=== PATIENT | female | born 1970 | race Caucasian/White ===

== ENCOUNTER 2016-10-20 02:31 | Inpatient (IN) | payer BC ==
[~2016-10-20] VITALS: Ht 162.6 cm; Wt 80.7 kg
[~2016-10-20 02:31] MED LIST: P-EP1TAB80 PO
[2016-10-20 02:50] VITALS: BP_SYST 137
[2016-10-20] MEDS ORDERED: NACL 0.9% 1,000 ML IV ONE ×2 (03:47→05:15)
[2016-10-20 03:59] LABS: BILIRUBIN,URINE NEGATIVE (NEGATIVE); CLARITY/URINE CLEAR (CLEAR); COLOR,URINE YELLOW (YELLOW); GLUCOSE,URINE NEGATIVE (NEGATIVE); KETONES,URINE NEGATIVE (NEGATIVE); LEUKOCYTE ESTERASE ,URINE NEGATIVE (NEGATIVE); NITRITE, URINE NEGATIVE (NEGATIVE); PROTEIN URINE NEGATIVE (NEGATIVE)
[2016-10-20] MEDS ORDERED: KETOROLAC TROMETHAMINE 30 MG VIAL IVP ONE (04:00)
[2016-10-20 04:04] LABS: BLOOD, URINE TRACE (NEGATIVE)
[2016-10-20 04:05] LABS: BACTERIA,URINE RARE /HPF (None Seen); MUCUS,URINE None Seen /LPF (None Seen); RBC,URINE 0-3 /HPF (0-3); WBC,URINE 0-3 /HPF (0-3)
[2016-10-20] MEDS ORDERED: PANTOPRAZOLE SODIUM 40 MG/VIAL (PROTONIX) IVP ONE (04:15)
[2016-10-20 04:20] LABS: CALCIUM 8.9 mg/dL (8.4-11.0); CREATININE 0.86 mg/dL (0.55-1.30); POTASSIUM 3.9 mmol/L (3.5-5.1)
[2016-10-20 04:23] LABS: HEMATOCRIT 37.5 % (36-48); HEMOGLOBIN 12.6 g/dL (12.0-16.0); MEAN CORPUSCULAR HEMOGLOBIN 29 pg (27-31); MEAN CORPUSCULAR HGB CONC 34 % (32-36); MEAN CORPUSCULAR VOLUME 86 fL (79.0-98.0); NEUTROPHILS % (AUTO) 75.7 % (40.0-70.0); PLATELET COUNT (AUTO) 289 K/uL (130-430); RED BLOOD CELL COUNT(AUTO) 4.38 MIL/uL (4.2-6.2); RED CELL DISTRIBUTION WIDTH 14.3 % (9.0-15.0); WHITE BLOOD COUNT (AUTO) 7.7 K/uL (4.8-10.8)
[2016-10-20 04:24] LABS: BASOPHILS % (AUTO) 0.3 % (0.0-2.0); EOSINOPHILS # (AUTO) 0.1 K/uL (0.0-0.4); EOSINOPHILS % (AUTO) 0.9 % (0.0-4.0); INR 0.9 (0.8-1.2); LYMPHOCYTES # (AUTO) 1.3 K/uL (1.0-5.5); LYMPHOCYTES % (AUTO) 16.7 % (20.5-51.5); MONOCYTES # (AUTO) 0.5 K/uL (0.0-1.0); MONOCYTES % (AUTO) 6.4 % (1.7-9.3); NEUTROPHILS # (AUTO) 5.8 K/uL (1.8-7.7); PROTHROMBIN TIME 10.2 SECS (9.5-12.5)
[2016-10-20 04:25] LABS: ALBUMIN 3.6 g/dL (3.4-4.8); TOTAL BILIRUBIN 0.7 mg/dL (0.0-1.0); TOTAL PROTEIN, SERUM 7.3 g/dL (6.4-8.3)
[2016-10-20] MEDS ORDERED: NACL 0.9% 1,000 ML IV SCH (05:14)
[2016-10-20] MEDS ORDERED: MORPHINE 2 MG/ML INJ. SYRINGE IVP PRN ×2 (05:15)
[2016-10-20] MEDS ORDERED: HYDROcodone/ACETAMIN 10-325 MG TAB PO PRN (05:15)
[2016-10-20] MEDS ORDERED: GABA-580 PO (05:15)
[2016-10-20] MEDS ORDERED: ONDANSETRON HCL 4 MG/2 ML VIAL IVP PRN (05:15)
[2016-10-20] MEDS ORDERED: ACETAMINOPHEN 325 MG TABLET PO PRN (05:15)
[2016-10-20] MEDS ORDERED: ZOLP10TA2 PO (05:15)
[2016-10-20] MEDS ORDERED: CYCL-10 PO (05:15)
[2016-10-20] MEDS ORDERED: TRAM50TA92 PO (05:15)
[2016-10-20] MEDS ORDERED: DULO20CA PO (05:15)
[2016-10-20 05:43] VITALS: BP_SYST 111
[2016-10-20 06:18] LABS: CHOLESTEROL 194 mg/dL (<200); HDL CHOLESTEROL 34 mg/dL (>55); LDL CHOLESTEROL 120 mg/dL (<100); TRIGLYCERIDES 155 mg/dL (30-150)
[2016-10-20] MEDS: ENOXAPARIN SODIUM 30 MG/0.3 ML SYRINGE SUBCUT SCH (08:20)
[2016-10-20 08:28] VITALS: BP_SYST 122
[2016-10-20] MEDS ORDERED: DIATR MEGLU/DIATRIZ SOD 30 ML SOLUTION PO ONE (08:59)
[2016-10-20] MEDS ORDERED: DULoxetine HCL 20 MG CAPSULE.DR PO SCH (09:00)
[2016-10-20] MEDS ORDERED: ZOLPIDEM TARTRATE 5 MG TABLET PO SCH (09:00)
[2016-10-20] MEDS: HYDROmorphone 1 MG INJ. 1 MG/ML AMPUL IVP PRN ×3 (10:58→20:10)
[2016-10-20] MEDS: KCL 10 mEq in D5/0.45NS 1000mL 1,000 ML IV SCH ×2 (11:48→20:11)
[2016-10-20 12:31] VITALS: BP_SYST 127
[2016-10-20 16:00] VITALS: BP_SYST 125
[2016-10-20] MEDS: ZOLPIDEM TARTRATE 5 MG TABLET PO PRN (22:49)
[2016-10-21 00:59] VITALS: BP_SYST 108
[2016-10-21 04:16] VITALS: BP_SYST 121
[2016-10-21] MEDS: KCL 10 mEq in D5/0.45NS 1000mL 1,000 ML IV SCH ×2 (05:56→17:42)
[2016-10-21] MEDS: ACETAMINOPHEN 325 MG TABLET PO PRN ×2 (06:05→20:12)
[2016-10-21 07:30] LABS: BASOPHILS % (AUTO) 0.4 % (0.0-2.0); EOSINOPHILS # (AUTO) 0.2 K/uL (0.0-0.4); EOSINOPHILS % (AUTO) 2.5 % (0.0-4.0); HEMATOCRIT 34.2 % (36-48); HEMOGLOBIN 11.4 g/dL (12.0-16.0); LYMPHOCYTES # (AUTO) 1.9 K/uL (1.0-5.5); LYMPHOCYTES % (AUTO) 31.1 % (20.5-51.5); MEAN CORPUSCULAR HEMOGLOBIN 29 pg (27-31); MEAN CORPUSCULAR HGB CONC 34 % (32-36); MEAN CORPUSCULAR VOLUME 86 fL (79.0-98.0); MONOCYTES # (AUTO) 0.4 K/uL (0.0-1.0); MONOCYTES % (AUTO) 5.7 % (1.7-9.3); NEUTROPHILS # (AUTO) 3.7 K/uL (1.8-7.7); NEUTROPHILS % (AUTO) 60.3 % (40.0-70.0); PLATELET COUNT (AUTO) 255 K/uL (130-430); RED BLOOD CELL COUNT(AUTO) 3.97 MIL/uL (4.2-6.2); WHITE BLOOD COUNT (AUTO) 6.2 K/uL (4.8-10.8)
[2016-10-21 07:34] LABS: CALCIUM 8.7 mg/dL (8.4-11.0); CREATININE 0.76 mg/dL (0.55-1.30); POTASSIUM 3.8 mmol/L (3.5-5.1)
[2016-10-21 07:38] LABS: ALBUMIN 3.3 g/dL (3.4-4.8); PHOSPHORUS 4.5 mg/dL (2.7-4.5); TOTAL BILIRUBIN 0.4 mg/dL (0.0-1.0); TOTAL PROTEIN, SERUM 6.8 g/dL (6.4-8.3)
[2016-10-21] MEDS: ENOXAPARIN SODIUM 30 MG/0.3 ML SYRINGE SUBCUT SCH (09:00)
[2016-10-21] MEDS: HYDROmorphone 1 MG INJ. 1 MG/ML AMPUL IVP PRN (11:25)
[2016-10-21 12:47] VITALS: BP_SYST 127
[2016-10-21 16:38] VITALS: BP_SYST 132
[2016-10-21 19:00] VITALS: BP_SYST 130
[2016-10-21 20:00] VITALS: BP_SYST 130
[2016-10-21] MEDS: ZOLPIDEM TARTRATE 5 MG TABLET PO PRN (20:56)
[2016-10-22] MEDS: KCL 10 mEq in D5/0.45NS 1000mL 1,000 ML IV SCH ×2 (01:00→03:01)
[2016-10-22] MEDS: HYDROmorphone 1 MG INJ. 1 MG/ML AMPUL IVP PRN (02:57)
[2016-10-22 06:51] LABS: BASOPHILS % (AUTO) 0.3 % (0.0-2.0); EOSINOPHILS # (AUTO) 0.1 K/uL (0.0-0.4); EOSINOPHILS % (AUTO) 1.4 % (0.0-4.0); HEMATOCRIT 34.7 % (36-48); HEMOGLOBIN 11.4 g/dL (12.0-16.0); LYMPHOCYTES # (AUTO) 2.1 K/uL (1.0-5.5); LYMPHOCYTES % (AUTO) 29.6 % (20.5-51.5); MEAN CORPUSCULAR HEMOGLOBIN 28 pg (27-31); MEAN CORPUSCULAR HGB CONC 33 % (32-36); MEAN CORPUSCULAR VOLUME 86 fL (79.0-98.0); MONOCYTES # (AUTO) 0.4 K/uL (0.0-1.0); MONOCYTES % (AUTO) 5.6 % (1.7-9.3); NEUTROPHILS # (AUTO) 4.4 K/uL (1.8-7.7); NEUTROPHILS % (AUTO) 63.1 % (40.0-70.0); PLATELET COUNT (AUTO) 283 K/uL (130-430); RED BLOOD CELL COUNT(AUTO) 4.03 MIL/uL (4.2-6.2); RED CELL DISTRIBUTION WIDTH 14.4 % (9.0-15.0)
[2016-10-22 07:02] LABS: ALBUMIN 3.3 g/dL (3.4-4.8); CALCIUM 8.5 mg/dL (8.4-11.0); CREATININE 0.72 mg/dL (0.55-1.30); POTASSIUM 3.7 mmol/L (3.5-5.1); TOTAL BILIRUBIN 0.4 mg/dL (0.0-1.0); TOTAL PROTEIN, SERUM 7.2 g/dL (6.4-8.3)
[2016-10-22 08:07] VITALS: BP_SYST 120
[2016-10-22] MEDS: ENOXAPARIN SODIUM 30 MG/0.3 ML SYRINGE SUBCUT SCH (09:45)
[2016-10-23 18:26] LABS: ANTI NUCLEAR AB WITH REFLEX Negative (Negative)
[2016-10-24 21:16] LABS: IMMUNOGLOBULIN G SUBCLASS 4 72 mg/dL (2-96)
== END 2016-10-22 14:00 | disposition home or self-care (01) | DRG 440 ==
LOC: SED 02:31 → SMU 05:14
PROVIDERS: ADMIT Internal Medicine; ATTEND Internal Medicine
DX: K85.90 Acute pancreatitis without necrosis or infection, unspecified (principal); M79.7 Fibromyalgia; D25.9 Leiomyoma of uterus, unspecified; G47.00 Insomnia, unspecified; R74.0 Nonspecific elevation of levels of transaminase and lactic acid dehydrogenase [LDH]; Z98.51 Tubal ligation status; Z90.49 Acquired absence of other specified parts of digestive tract; Z80.49 Family history of malignant neoplasm of other genital organs; Z80.3 Family history of malignant neoplasm of breast; Z79.899 Other long term (current) drug therapy
CPT/HCPCS: 36415; 74181; 76700-TC; 76830-TC; 76857; 80053; 80061; 81000-TC; 81025; 82787; 83690-TC; 83735-TC; 84100-TC; 85025; 85610-TC; 85730-TC; 86038; 96361; 96374; 96375; 99285; C9113; J1170; J1650; J1885; J7030; Q9964

== ENCOUNTER 2016-11-25 06:00 | Day surgery (SDC) | payer BC ==
[~2016-11-25] VITALS: Ht 165.1 cm; Wt 79.8 kg
[~2016-11-25 06:00] MED LIST changes: +CYCL-10 PO; +DULO20CA PO; +GABA-580 PO; +TRAM50TA92 PO; +ZOLP10TA2 PO
[2016-11-25] MEDS ORDERED: KETAMINE HCL 500 MG/10 ML VIAL IVP ONE (07:05)
[2016-11-25] MEDS ORDERED: PROPOFOL 200MG/ 20ML VIAL (DIPRIVAN) IV ONE (07:05)
[2016-11-25] MEDS ORDERED: LR 1,000 ML IV.SOLN IV ONE (07:05)
[2016-11-25] MEDS ORDERED: MIDAZOLAM HCL 5 MG/5 ML VIAL IVP ONE (07:05)
[2016-11-25] MEDS ORDERED: fentaNYL CITRATE 250 MCG/5 ML AMP IV ONE (07:05)
[2016-11-25] MEDS ORDERED: SEVOFLURANE 15 MIN GAS INH ONE (07:05)
[2016-11-25] MEDS ORDERED: KETOROLAC TROMETHAMINE 30 MG VIAL IVP ONE (07:05)
[2016-11-25] MEDS ORDERED: DEXAMETHASONE SOD PHOSPHATE 4 MG/ML VIAL IVP ONE (07:05)
[2016-11-25] MEDS ORDERED: BUPIVACAINE /EPINEPHRINE/PF 0.5% 30 ML VIAL INJ ONE (07:05)
[2016-11-25] MEDS ORDERED: NS 1000 ML BAG IV ONE (07:05)
[2016-11-25] MEDS ORDERED: ONDANSETRON HCL 4 MG/2 ML VIAL IVP ONE (07:05)
[2016-11-25] MEDS ORDERED: ROCURONIUM BROMIDE 10 MG/ML (ZEMURON) IV ONE (07:05)
[2016-11-25] MEDS ORDERED: KETAMINE HCL 500 MG/10 ML VIAL ONE (07:32)
[2016-11-25] MEDS ORDERED: HYDROmorphone 2 MG/ML VIAL IVP PRN ×2 (08:30)
[2016-11-25] MEDS ORDERED: MEPERIDINE HCL/PF 25 MG/ML DISP.SYRIN IVP PRN (08:30)
[2016-11-25] MEDS ORDERED: LR 1,000 ML IV SCH (08:30)
[2016-11-25] MEDS ORDERED: HYDROmorphone 1 MG INJ. 1 MG/ML AMPUL IVP PRN (08:30)
[2016-11-25] MEDS ORDERED: HYDROmorphone 2 MG TAB PO PRN (09:00)
[2016-11-25] MEDS ORDERED: ONDANSETRON HCL 4 MG/2 ML VIAL IVP PRN (09:00)
[2016-11-25] MEDS ORDERED: PROMETHAZINE HCL 25 MG/ML AMP IM PRN (09:00)
[2016-11-25] MEDS ORDERED: OXYCODONE/ACETAMINOPHEN 5-325 TABLET PO PRN (09:00)
[2016-11-25] MEDS ORDERED: HYDROmorphone 2 MG/ML VIAL ONE (09:31)
[2016-11-25] MEDS ORDERED: OXYCODONE/ACETAMINOPHEN 5-325 TABLET ONE (10:31)
[2016-11-25 10:48] VITALS: BP_SYST 113
== END 2016-11-25 12:00 | disposition home or self-care (01) ==
LOC: SMU 06:00 → SDS 06:00
PROVIDERS: ATTEND Obstetrics & Gynecology
DX: N80.1 Endometriosis of ovary (principal); K66.0 Peritoneal adhesions (postprocedural) (postinfection); M79.7 Fibromyalgia; Z90.49 Acquired absence of other specified parts of digestive tract; Z98.890 Other specified postprocedural states; Z79.899 Other long term (current) drug therapy; Z80.3 Family history of malignant neoplasm of breast; Z80.8 Family history of malignant neoplasm of other organs or systems; K85.90 Acute pancreatitis without necrosis or infection, unspecified; E66.01 Morbid (severe) obesity due to excess calories; F41.9 Anxiety disorder, unspecified; F32.9 Major depressive disorder, single episode, unspecified
CPT/HCPCS: 36415; 58661; 86886; 86900; 86901; 88305; J1100; J1170; J1885; J2250; J2405; J2704; J3010; J3490; J7030; J7120; C1727

== ENCOUNTER 2017-05-31 07:24 | Day surgery (SDC) | payer BC ==
[~2017-05-31] VITALS: Ht 165.1 cm; Wt 82.6 kg
[~2017-05-31 07:24] MED LIST changes: +CEFAZOLIN SOD 1 GM/ ISO 50 ML PREMIX IV ONE
[2017-05-31 08:41] LABS: HCG,QUAL RESULT NEGATIVE (NEGATIVE)
[2017-05-31] MEDS ORDERED: POLYMYXIN 500,000/BACIT.10,000 UNITS in NS IRR 1 L IR ONE (09:14)
[2017-05-31] MEDS ORDERED: GLYCOPYRROLATE 0.2 MG/ML VIAL IJ ONE (09:20)
[2017-05-31] MEDS ORDERED: BUPIVACAINE /PF 0.25% 30 ML VIAL INJ ONE (09:20)
[2017-05-31] MEDS ORDERED: NEOSTIGMINE METHYLSULFATE 1 MG/ML, 10 ML VIAL IVP ONE (09:20)
[2017-05-31] MEDS ORDERED: PROPOFOL 200MG/ 20ML VIAL (DIPRIVAN) IV ONE (09:20)
[2017-05-31] MEDS ORDERED: MIDAZOLAM HCL 5 MG/5 ML VIAL IVP ONE (09:20)
[2017-05-31] MEDS ORDERED: ONDANSETRON HCL 4 MG/2 ML VIAL IVP ONE (09:20)
[2017-05-31] MEDS ORDERED: fentaNYL CITRATE/PF 100 MCG/2 ML AMP IVP ONE (09:20)
[2017-05-31] MEDS ORDERED: SEVOFLURANE 15 MIN GAS INH ONE (09:20)
[2017-05-31] MEDS ORDERED: ROCURONIUM BROMIDE 10 MG/ML (ZEMURON) IV ONE (09:20)
[2017-05-31] MEDS ORDERED: LR 1,000 ML IV SCH (10:05)
[2017-05-31] MEDS ORDERED: HYDROmorphone 1 MG INJ. 1 MG/ML AMPUL IVP PRN ×3 (10:15→10:30)
[2017-05-31] MEDS ORDERED: METOCLOPRAMIDE HCL 10 MG/2 ML VIAL IVP PRN (10:15)
[2017-05-31] MEDS ORDERED: HYDROmorphone 2 MG/ML VIAL IVP PRN (10:15)
[2017-05-31] MEDS ORDERED: D5/0.45 NS 1,000 ML IV SCH (10:28)
[2017-05-31] MEDS ORDERED: HYDROcodone/ACETAMIN 5-325 MG TAB (NORCO/ VICODIN) PO PRN ×2 (10:30)
[2017-05-31] MEDS ORDERED: HYDROmorphone 2 MG/ML VIAL ONE ×2 (10:49→11:17)
[2017-05-31] MEDS ORDERED: HYDROcodone/ACETAMIN 5-325 MG TAB (NORCO/ VICODIN) ONE (12:13)
[2017-05-31 12:25] VITALS: BP_SYST 142
== END 2017-05-31 13:40 | disposition home or self-care (01) ==
LOC: SMU 07:24 → SDS 07:24
PROVIDERS: ATTEND Colon & Rectal Surgery
DX: K43.0 Incisional hernia with obstruction, without gangrene (principal); N80.2 Endometriosis of fallopian tube; N80.5 Endometriosis of intestine; K85.90 Acute pancreatitis without necrosis or infection, unspecified; J45.909 Unspecified asthma, uncomplicated; M50.00 Cervical disc disorder with myelopathy, unspecified cervical region; J31.0 Chronic rhinitis; K21.9 Gastro-esophageal reflux disease without esophagitis; M79.7 Fibromyalgia; G60.3 Idiopathic progressive neuropathy; K42.9 Umbilical hernia without obstruction or gangrene; F32.9 Major depressive disorder, single episode, unspecified; Z98.890 Other specified postprocedural states; Z68.30 Body mass index [BMI] 30.0-30.9, adult; Z80.3 Family history of malignant neoplasm of breast; Z80.49 Family history of malignant neoplasm of other genital organs; Z79.899 Other long term (current) drug therapy; E66.3 Overweight; G62.9 Polyneuropathy, unspecified; M19.90 Unspecified osteoarthritis, unspecified site
CPT/HCPCS: 49561; 49568; 58662; 84703; 88302; C1781; J0690; J1170; J2250; J2405; J2704; J2710; J3010; J3490 ×2